=== PATIENT | female | born 1990 | race Caucasian/White ===

== ENCOUNTER → 2018-11-05 13:44 | Outpatient (CLI) | payer OTHER, SELFPAY ==
[2018-11-05 17:30] LABS: Hematocrit 36.4 % (36-46); Hemoglobin 12.3 g/dL (12.0-16.0)
[2018-11-05 18:07] LABS: GTT (PREG) 1 Hour PP 50gm Dose 134 mg/dL (76-139)
== END ==
PROVIDERS: PCP Family Medicine; Visit Provider Family Medicine
DX: Z34.82 Encounter for supervision of other normal pregnancy, second trimester (principal); Z3A.25 25 weeks gestation of pregnancy
CPT/HCPCS: 36415; 82950; 85014; 85018

== ENCOUNTER → 2019-01-02 11:14 | Outpatient (CLI) | payer OTHER, SELFPAY ==
[2019-01-03 19:20] LABS: Strep Grp B PCR NEG for Grp B Strep
== END ==
PROVIDERS: PCP Family Medicine; Visit Provider Family Medicine
DX: Z3A.36 36 weeks gestation of pregnancy (principal); Z34.83 Encounter for supervision of other normal pregnancy, third trimester
CPT/HCPCS: 87653

== ENCOUNTER 2019-02-05 18:04 | Inpatient (IN) | payer OTHER, SELFPAY ==
[2019-02-05] MEDS: CALCIUM CARBONATE 500 MG TAB PO (19:26)
[2019-02-05] MEDS: DINOPROSTONE VAG (CERVIDIL) 10 MG VAG (19:31)
--- NOTE | 2019-02-05 20:14 | PM.OBHP.1 ---
OB HPI Date/Time Date of admission: 02/05/19 Date Patient Seen: 02/05/19 Time Patient Seen: 20:00 History of Present Condition Chief complaint: eval of labor : 3 Para: 2 Estimated Date of Delivery: 01/29/19 Estimated Gestational Age (weeks): 41 Narrative: Jennifer Beasley is a 28 year old at 41 weeks gestation here for postdates induction. has been uncomplicated. Indications Indication for induction OB: post dates History of Present care: good care, initiated at week # (Transfer from [place] at 25 weeks), number of visits (11) and pounds weight gain (35) Dating criteria: LMP confirmed by 1st trimester US Ultrasounds: normal 1st trimester US and normal mid trimester US Obstetrical complications: none Medical complications: none Preadmission Labs Blood type: A (+) positive -: Antibody screen: negative, GBS status: negative, HBsAG: negative, HIV: negative and RPR/VDLR: negative -: Chlamydia screen: not detected and Gonorrhea screen: not detected -: Rubella: immune and Varicella: immune HCT: 36.6 HCAB: negative PAP: Normal Quad screen: Normal Urine: Negative 1 hr GTT: 134 Prior (ies) History: 02/15/2014 at 40 weeks , 24 hour labor, 8 lbs 4 oz male, epidural, breastfed 8 months, depression 09/14/2015 at 39.5 weeks, 24 hour labor, 7 lbs 7 oz female, breastfed 4 months Evaluation Evaluation Baseline heart rate: 140 Variability: Moderate (11-25) monitor accelerations: Present monitor decelerations: Absent Uterine Contraction Intensity: Mild Category of Tracing: I Cervical dilation (cm): 0 Cervical effacement (%): 50 station: -4 [facility] Medical History Herniated disc (Resolved) depression (Resolved) Spontaneous vaginal delivery (Resolved) Surgical History [place] teeth removed (Resolved) Family History Sister Neurofibromatosis Social History marital status: number of children: 2 household members: spouse and children (2) occupational status: employed Smoking Status: Former smoker alcohol intake: former substance use type: does not use Family History Sister Neurofibromatosis Social History marital status: number of children: 2 household members: spouse and children (2) occupational status: employed Smoking Status: Former smoker alcohol intake: former substance use type: does not use Meds Home Medications Medication Instructions Recorded Confirmed Type Double Electric Breast Pump and #1 ea 11/21/18 11/21/18 Rx supplies Allergies Allergy/AdvReac Type Severity Reaction Status Date / Time No Known Drug Allergies Allergy Verified 10/18/18 10:11 Review of Systems Constitutional Constitutional: Denies fatigue and Denies fever(s) Cardiovascular Cardiovascular: Reports leg swelling Respiratory Respiratory: Denies cough Gastrointestinal Gastrointestinal: Denies abdominal pain, Denies nausea and Denies vomiting Endocrine Endocrine: Denies fatigue Exam Const General: healthy appearing and comfortable HENMT Head: normal to inspection Ears: hearing grossly normal bilaterally Nose: external nose normal Face and sinus: normal facial exam Mouth: oral mucosae normal Teeth and gingiva: dentition normal Eyes General: appearance normal, both eyes and all related structures Neck Neck: normal visual inspection Resp Effort & Inspection: normal respiratory effort Cardio Rate: regular rate Rhythm: regular rhythm External Female Exam: external appearance normal Manual OB Exam: dilated fingertip, effaced 50% and station high Presentation: transverse/shoulder Estimated Weight (lbs): 9 Skin General: no rashes or lesions noted Extrem General: edema (1+) Assessment and Plan Assessment and Plan Assessment and Plan narrative: 28 year old at 41 weeks gestation here for postdates induction. On admission presentation was transverse with the head on the right side of the pelvis. Patient got up and sat on the birthing ball. Dr. Mcdonald was call in and when patient returned to bed infant was vertex. Will proceed with Cervidil overnight and pitocin in the morning.
[2019-02-05 20:42] LABS: Add Manual Diff / Slide Review NO; Basophils Absolute Auto 100 /uL (0-100); Basophils Percent Auto 0.6 % (0-2); Eosinophils Absolute Auto 300 /uL (0-450); Eosinophils Percent Auto 2.8 % (2-4); Hematocrit 40.5 % (36-46); Hemoglobin 13.9 g/dL (12.0-16.0); Lymphocytes Absolute Auto 2500 /uL (1100-4500); Lymphocytes Percent Auto 24.8 % (25-40); Mean Corpuscular HGB Conc 34.3 % (30-36); Mean Corpuscular Hemoglobin 31.4 PG (26-34); Mean Corpuscular Volume 91.6 fL (80-100); Monocytes Absolute Auto 700 /uL (0-900); Monocytes Percent Auto 6.9 % (3-14); Neutrophils Absolute Auto 6400 /uL (1500-7000); Neutrophils Percent Auto 64.9 % (50-75); Platelet Count 186 X10^3/uL (150-400); Red Blood Cell Count 4.42 X10^6/uL (4.0-5.2); Red Cell Distribution Width 14.3 % (11.6-14.8); White Blood Cell Count 9.9 X10^3/uL (4.5-11.0)
--- NOTE | 2019-02-06 07:32 | PM.OBPNLAB ---
Date/Time Date Patient Seen: 02/06/19 Time Patient Seen: 07:29 Pain Control Pain control: tolerating well Comments: No complaints this morning. Patient slept some overnight with Cervidil. Pelvic Exam Dilation (cm): 2 Effacement (%): 50 station: -3 Amniotic membrane status: Intact Comments: Vertex confirmed with US Contractions Contractions on admission: irregular Monitor mode: External Contraction pattern: Irregular Contraction intensity: Mild Status status: Category l Heart Rate Baseline: 130 Monitor Accelerations: Present Monitor Decelerations: Absent Monitor Variability: Moderate Assessment and Plan Assessment: induction ongoing Comments: S/p Cervidil overnight, cervix now 2 cm though very posterior. Will start pitocin per protocol.
[2019-02-06] MEDS: LACTATED RINGERS 1,000 ML 100 ML IV (08:38)
[2019-02-06] MEDS: OXYTOCIN PREMIX 30 UNIT/500 ML PLAST..BAG IV (08:39)
[2019-02-06] MEDS: LACTATED RINGERS 1,000 ML 999 ML IV (13:52)
--- NOTE | 2019-02-06 15:48 | PM.OBPRVD ---
Events: Labor Induction (Postdates) Delivery date: 02/06/19 Cervical ripening method: per Cervidil protocol Induction method: per pitocin protocol Delivery augmentation: rupture of membranes Delivery monitor: external FHT Route of delivery: L&D Laceration Description: Vaginal - 1st Degree Delivery repair: vicryl Estimated blood loss (mL): 200 Anesthesia type: Epidural Narrative: Patient is a 28-year-old at 41 weeks and 1 day gestation who gave on 02/06/19 at 1523. GOPI: 01/29/19 Hospital problems: 41 weeks of Epidural analgesia Shoulder dystocia Patient presented to the center the night of 02/05/19 for cervical ripening with Cervidil. Pitocin begun per protocol on 02/06/19. STAGE I: Labor Active labor began at approximately 12:40 p.m. after several hours of Pitocin and artificial rupture of membranes with a small amount of clear fluid. heart tones were category 1 and 2 throughout stage I due to intermittent variable decelerations. Patient received an epidural with adequate pain control. She reached full dilation at 2:35 p.m.. Stage I duration 1 hour 55 minutes. STAGE II: Delivery Patient was complete at 2:35 p.m.. Delivery occurred at 3:23 p.m.. Infant was vertex and ZUNILDA. There was a 1 minutes shoulder dystocia relieved with Syl maneuver and suprapubic pressure. was vigorous at delivery with Apgars of 7 and 9. No resuscitation required beyond drying and stimulating. Umbilical cord clamped and cut after 1 minutes delay. STAGE III: Placenta/Cord Placenta delivered spontaneously after active management and appeared intact with a three-vessel cord. Stage III duration 9 minutes. A first degree midline vaginal laceration was repaired in the usual fashion with 4-0 vicryl with good hemostasis. Fundus was firm below umbilicus after delivery. EBL: 200 mL. Needle and sponge counts were correct. The vagina was inspected and no items were left in situ. Patient was doing well with Divine, her and at bedside. Baby 1: gender: Female Presentation: vertex Placenta delivery description: Spontaneous cord vessel description: 3 Vessels score (1 min): 7 score (5 min): 9
[2019-02-06] MEDS: METHYLERGONOVINE 0.2 MG TABLET PO (18:41)
[2019-02-06] MEDS: IBUPROFEN 600 MG TABLET PO (19:39)
--- NOTE | 2019-02-07 08:06 | PM.OBDS.1 ---
Discharge Providers Date of admission: 02/05/19 18:04 Discharge Date: 02/07/19 Primary care physician: Kane Damon MD Consults: 02/06/19 16:28 Consult to [employer] Director Routine Comment: Discharge provider: Jyoti Barajas DO Summary Date Patient Seen: 02/07/19 Time Patient Seen: 07:45 Procedures: Spontaneous vaginal delivery Epidural Hospital Course: Patient is a 28-year-old G3 now P3 after spontaneous vaginal delivery on 02/06/19 at 41 weeks and 1 day gestation. Patient was admitted for post-dates induction. Received Cervidil and Pitocin per protocol. She received an epidural with adequate pain control. Delivery was complicated by a 1 minutes shoulder dystocia relieved with suprapubic pressure and Syl maneuver. was vigorous at delivery and did not require resuscitation beyond drying and stimulating. Several hours patient got up and reportedly had a large amount of bleeding and clots. She received Methergine with good control of bleeding. No significant anemia noted on follow-up H and H. course was otherwise uncomplicated. Breast-feeding going well. No concerns with infant. Patient was ambulating, eating, voiding and passing flatus without difficulty. Pain well controlled with ibuprofen only. Bleeding had decreased significantly on day one. Patient was eager to return home to her two other children. Peripartum Data Infant Delivery Method: Natural Vaginal Laceration description: Vaginal - 1st Degree 1: Gender: Female Disposition of : home Discharge Diagnosis (1) 41 weeks gestation of : Status: Acute (2) Spontaneous vaginal delivery: Status: Acute Status at Discharge Functional status at discharge: independent ambulation Overall status at discharge: patient is back to baseline Time Spent with Patient Total time spent providing and/or coordinating discharge services: Less than 30 minutes Objective Labs Result Diagrams: 02/07/19 08:05 Labs: Laboratory Results - last 24 hr 02/05/19 20:30 Blood Type A Positive Exam Narrative Exam Narrative: Temperature 97.2 BP 126/84 HR 69 General: Awake and alert, no acute distress. HEENT: NCAT, EOMI, moist oral mucosa CV: Regular rate and rhythm, no murmurs, rubs or gallops Lungs: CTAB, no wheezes, rales, or rhonchi Abdomen: Soft, nontender; bowel tones active; uterus firm 1 cm below umbilicus Extremities: Warm, trace edema, 2+ pedal pulses bilaterally Discharge Plan Discharge Plan Patient Disposition: Home Discharge comment: Call for fevers, severe pain or bleeding through more than a pad an hour. Discharge Med Rec/Prescriptions Prescriptions: New ibuprofen 600 mg Tablet 600 mg PO Q6HR PRN (Reason: Pain, Mild (1-3)) Qty: 30 RF: 0 docusate sodium 250 mg Capsule 250 mg PO DAILY Qty: 30 RF: 0 Continued Double Electric Breast Pump and supplies Qty: 1 RF: 0 Follow up/Referrals: Jyoti Barajas DO [Family Provider] - 6 Weeks (, ,check in time 11:10 am) Kane Damon MD [Primary Care Provider] - Provider Discharge Instructions Diet: Regular Skin/Wound/Dressing Care Report to your healthcare provider any signs of infection, such as:: chills, fever, night sweats, increased pain, unusual drainage and unusual redness Visit Report/Discharge Packet Instructions: DI for Labor and Delivery, Vaginal Stand Alone Forms: Discharge: Care Discharge Data Primary Care Provider: Kane Damon Attending Provider: Jyoti Barajas Admit Date/Time: 02/05/19 18:04
[2019-02-07 08:20] LABS: Hematocrit 34.7 % (36-46)
[2019-02-07] MEDS: DOCUSATE 250 MG CAPSULE PO (08:32)
[2019-02-07] MEDS: IBUPROFEN 600 MG TABLET PO (08:32)
[2019-02-07 08:50] VITALS: BP 126/84; PULSE 80; RESP 16; TEMP 36.2
== END 2019-02-07 12:56 | disposition home or self-care (01) | DRG 807 ==
PROVIDERS: Admitting Provider Family Medicine; Family Provider Family Medicine; PCP Family Medicine; Visit Provider Family Medicine
DX: O48.0 Post-term pregnancy (principal); Z37.0 Single live birth; Z3A.41 41 weeks gestation of pregnancy; O70.0 First degree perineal laceration during delivery; O66.0 Obstructed labor due to shoulder dystocia
CPT/HCPCS: 01967; 36415; 59050; 59410; 85014; 85018; 85025; 86850; 86900; 86901; G0379; J2590